=== PATIENT | male | born 1995 | race Caucasian/White ===

== ENCOUNTER 2022-04-14 00:50 | Emergency (ER) | payer BC ==
[2022-04-14 01:40] LABS: HEMOGLOBIN 17.2 gm/dl (14.0-17.5); RED BLOOD COUNT 5.4 M/UL (4.20-5.50); WHITE BLOOD COUNT 8.6 K/UL (4.5-11.0)
[2022-04-14 02:38] LABS: BUN/CREATININE RATIO 8 (0-10)
== END 2022-04-14 03:20 | disposition home or self-care (01) ==
LOC: ER1 00:50
PROVIDERS: Nurse Practitioner
DX: R07.89 Other chest pain (principal); Z90.89 Acquired absence of other organs; Z88.0 Allergy status to penicillin
CPT/HCPCS: 71045; 80053; 80076; 80307; 81001; 82550; 82553; 83735; 84100; 84439; 84443; 84484; 85025; 93005; 99285